=== PATIENT | male | born 1965 | race Caucasian/White ===

== ENCOUNTER 2017-02-11 10:42 | Day surgery (SDC) | payer BC ==
[~2017-02-11] VITALS: Ht 177.8 cm; Wt 93.0 kg
[~2017-02-11 10:42] MED LIST: CYCLOBENZAPRINE10 MG PO; PROPRANOLOL HCL80 MG PO; TROKENDI XR100 MG PO
[2017-02-11 14:14] VITALS: BP 141/83; Ht 177.8 cm; Wt 93.0 kg
[2017-02-11 14:43] LABS: HEMATOCRIT 49.1 % (42.0-54.0); HEMOGLOBIN 16.7 g/dL (13.5-17.5); MCH 32.1 pg (26.0-34.0); MCV 94.4 fL (80.0-100.0); MEAN PLATELET VOLUME 11.9 fL (7.4-10.4); RBC 5.2 10x6/uL (4.20-6.10); RDW 13.3 % (11.5-14.5); WBC 6.3 10x3/uL (4.8-10.8)
[2017-02-12 08:59] LABS: ANION GAP 14.4 mmol/L (8-16); CALCIUM 9.4 mg/dL (8.5-10.1); CARBON DIOXIDE 23.4 mmol/L (21.0-32.0); CREATININE - SERUM 1.2 mg/dL (0.6-1.3); POTASSIUM - SERUM 4.8 mmol/L (3.5-5.1)
--- NOTE | 2017-02-14 11:31 | OP ---
PATIENT NAME: KATHERINE RAPP MEDICAL RECORD: [id number] :61 [facility] AD[facility]ION DATE: SURGEON: MEGHNA MORIN MD DATE OF OPERATION: 02/11/2017 PREOPERATIVE DIAGNOSIS: Extensive adhesive capsulitis of the left shoulder. POSTOPERATIVE DIAGNOSIS: Extensive adhesive capsulitis of the left shoulder. PROCEDURE: Manipulation of the left shoulder under anesthesia. SURGEON: Meghna Morin MD ANESTHESIA: TIVA. INTRAOPERATIVE COMPLICATIONS: None. SUMMARY OF PATHOLOGIC FINDINGS: The patient had extremely tight adhesive capsulitis. OPERATIVE SUMMARY IN DETAIL: After obtaining the appropriate preoperative orthopedic surgery consent as well as anesthetic consultation, evaluation and clearance, the patient was brought to the operating room and left on his [facility]. After adequate TIVA anesthesia had been administered, the scapula was stabilized and manipulation was first carried out in abduction followed by flexion, followed by external rotation and internal rotation and abduction, resulting in good release and good passive range of motion. The patient was awakened and taken back to outpatient in stable condition. TRANSINT:[id number] Voice Confirmation ID: [id number] DOCUMENT ID: [id number] MEGHNA MORIN MD at 1131 CC: [id number] DICTATION DATE: 02/11/17 1707 [employer] OFF[employer]ER: 02/12/17 0044 [facility] 02/11/[address] [address]
== END 2017-02-11 18:50 | disposition home or self-care (01) ==
LOC: D.OPS 10:42 → D.PAN 15:30 → D.OPS 15:30
PROVIDERS: Anesthesiology
DX: M75.02 Adhesive capsulitis of left shoulder (principal); I10 Essential (primary) hypertension; Z01.812 Encounter for preprocedural laboratory examination